=== PATIENT | male | born 1970 | race Caucasian/White ===

== ENCOUNTER 2019-01-21 20:12 | Inpatient (IN) | payer SELFPAY ==
[~2019-01-21] VITALS: Ht 188 cm; Wt 74.0 kg
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
[2019-01-21] MEDS ORDERED: LIDOCAINE /MPF 1% VIAL 5 ML VIAL ONE (20:29)
--- NOTE | 2019-01-21 20:53 | NUR ---
GERI PA AT BEDSIDE FOR SUTURING.
[2019-01-21] MEDS ORDERED: IV NS 0.9% 1,000 ML BAG IV ONE (21:00)
[2019-01-21] MEDS ORDERED: TDAP [DIPH/PERTUSSIS/TET] 0.5 ML VIAL IM ONE ×2 (21:00→21:13)
[2019-01-21] MEDS ORDERED: LIDOCAINE HCL/PF 1% 30 ML VIAL TP ONE (21:00)
--- NOTE | 2019-01-21 21:00 | NUR ---
PT UNABLE TO URINATE, ER AWARE.
[2019-01-21 21:19] LABS: BASOPHILS # (AUTO) 0.1 /CMM (0.0-0.2); BASOPHILS % (AUTO) 1.4 % (0.0-2.0); EOSINOPHILS % (AUTO) 0.7 % (0.0-6.0); HEMATOCRIT 44 % (39-51); LYMPHOCYTES # (AUTO) 1.7 /CMM (0.8-4.8); LYMPHOCYTES % (AUTO) 40.6 % (20.0-44.0); MEAN CORPUSCULAR HGB CONC 34 g/dl (31.0-36.0); MEAN CORPUSCULAR VOLUME 100 fL (80-96); MONOCYTES # (AUTO) 0.4 /CMM (0.1-1.30); MONOCYTES % (AUTO) 10.2 % (2.0-12.0); NEUTROPHILS # (AUTO) 1.9 /CMM (1.8-8.9); NEUTROPHILS % (AUTO) 47.1 % (43.0-81.0); PLATELET COUNT (AUTO) 77 /CMM (150-450); RED BLOOD CELL COUNT(AUTO) 4.39 MIL/uL (4.5-6.0); WHITE BLOOD COUNT (AUTO) 4.1 K/uL (4.3-11.0)
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
--- NOTE | 2019-01-21 21:20 | NUR ---
PT TAKEN TO CT.
[2019-01-21 21:36] LABS: CARBON DIOXIDE 26 mmol/L (21-32); CHLORIDE 102 mmol/L (98-107); CREATININE 0.8 mg/dL (0.6-1.3); GLUCOSE 114 mg/dL (74-106); SODIUM SERUM 141 mmol/L (136-145); UREA NITROGEN, BLOOD 5 mg/dL (7-18)
[2019-01-21 21:45] LABS: ALANINE AMINOTRANSFERASE 83 U/L (12-78); ALBUMIN 4.4 g/dL (3.4-5.0); ALCOHOL, BLOOD 384 mg/dL (0-0); ALKALINE PHOSPHATASE 83 U/L (46-116); ASPARTATE AMINOTRANSFERASE 112 U/L (15-37); BAND % (MANUAL) 6 % (0.0-5.0); BILIRUBIN,DIRECT 0.1 mg/dL (0.0-0.2); BILIRUBIN,TOTAL 0.4 mg/dL (0.2-1.0); EOSINOPHILS % (MANUAL) 2 % (0-4); LYMPHOCYTES % (MANUAL) 46 % (16-48); MONOCYTES % (MANUAL) 8 % (0-11.0); NEUTROPHILS % (MANUAL) 37 (42-76); REACTIVE LYMPHOCYTES 1 % (0-0); SALICYLATE 2.8 mg/dL (2.8-20.0); TOTAL PROTEIN, SERUM 7.6 g/dL (6.4-8.2)
[2019-01-21 21:49] LABS: ACETAMINOPHEN < 10 ug/ml (10-30)
--- NOTE | 2019-01-21 21:57 | NUR ---
EPIC PAGED, PRODUCTION MACHINE TENDER
--- NOTE | 2019-01-21 22:07 | NUR ---
CALLED NURSING SUP. FOR TELE BED
--- NOTE | 2019-01-21 22:15 | NUR ---
[facility] REPAGED
[2019-01-21 22:47] LABS: THYROID STIMULATING HORMONE 2.279 uIU/mL (0.358-3.74)
--- NOTE | 2019-01-21 22:55 | NUR ---
PT UNABLE TO URINATE, ER MD AWARE. PT REFUSES IN AND OUT CATHETER.
--- NOTE | 2019-01-21 23:14 | NUR ---
REPORT GIVEN TO GER GRIFFITHS FOR MATTEO.
--- NOTE | 2019-01-21 23:45 | NUR ---
TELE PATIENT FINANCIAL REPRESENTATIVE INITIAL NOTES' ADMIT PT FROM ER VIA [place] ACCOMPANIED BY PARENT AIDE. DX OF ETOH INTOXICATION. PT IS ALERT ORIENTED X4. AWARE WHERE HE AT. RESPIRATION EVEN AND UNLABORED NOT IN [place] ACUTE DISTRESS NOTED. PT STATED HE STARTED DRINKING ALCOHOL AFTER HIS FOR 30 YRS PASSES AWAY . NOTICED PT SHAKING TRYING TO CALMED HIM DOWN BY TAKING TO HIM WITH ENCOURAGEMENT. KEPT HIM WARM AND COMFORTABLE AT ALL TIMES. ORIENTED HOW TO USED THE CALL LIGHT SYSTEM AND ENCOURAGE HIM TO USED IF HE NEEDS SOME HELPED. TELE APPLIED AND EXPLAINED TO THE PATIENT THE PURPOSE OF IT AND PT UNDERSTOOD WELL. TELE SINUS RHYTHM HEART RATE 85 PER MONITOR. CONTINUE MONITORING FOR SAFETY.
[2019-01-22] VITALS: BP 124/87
[2019-01-22] MEDS ORDERED: MAGNESIUM HYDROXIDE 30 ML UDC PO PRN (00:30)
[2019-01-22] MEDS ORDERED: ACETAMINOPHEN 325 MG TABLET PO PRN (00:30)
[2019-01-22] MEDS ORDERED: MAG HYDROX/AL HYDROX/SIMETH 30 ML UDC PO PRN (00:30)
[2019-01-22] MEDS ORDERED: ZOLPIDEM TARTRATE 5 MG TABLET PO PRN (00:30)
[2019-01-22] MEDS ORDERED: Z GUARD REMEDY 2 OZ OINT TP PRN (00:30)
[2019-01-22] MEDS ORDERED: hydrALAZINE HCL 25 MG TABLET PO PRN (00:30)
[2019-01-22] MEDS ORDERED: HYDROCODONE/APAP 5/325MG 1 EACH TABLET PO PRN (00:30)
[2019-01-22] MEDS: IV D5/0.45 NACL 1,000 ML IV PRN ×2 (00:48→15:58)
[2019-01-22] MEDS: LORAZEPAM INJ 2 MG/ML VIAL IV PRN ×3 (00:54→17:13)
--- NOTE | 2019-01-22 00:55 | NUR ---
TELE FINANCIAL AID COUNSELOR NOTES NOTICED PT GETTING ANXIOUS AND SHAKING WHILE TALKING TO HIM , ATIVAN 1 MG ADMINISTERED BY ANOTHER NURSE TO HELPED THE PT CALMED DOWN. SAFETY PRECAUTION IMPLEMENTED AND OBSERVED. IVF D5 1/2 NS STARTED TOO INFUSED ORDERED. WILL CONTINUE MONITORING. SITTER AT THE BEDSIDE.
--- NOTE | 2019-01-22 02:00 | NUR ---
TELE METER INSPECTOR NOTES PT SLEEPING AT THIS TIME WITHOUT ANY DISTRESS NOTED. IVF STILL INFUSING. TELE SR PER MONITOR.
[2019-01-22] MEDS ORDERED: METO25TA6 PO (05:55)
[2019-01-22] MEDS ORDERED: ESCI10TA PO (05:55)
--- NOTE | 2019-01-22 07:08 | NUR ---
ASSISTANT WOMENS VOLLEYBALL COACH NOTES PATIENT IN BED ALERT ORIENTED X 4. NO ACUTE DISTRESS NOTED. BREATHING UNLABORED. NO SOB NOTED. IV ACCESS PATENT AND INTACT, NO REDNESS OR SWELLING NOTED. SAFETY MEAURES IN PLACE. HOB ELEVATED. CALL LIGHT WITHIN REACH. WILL CONTINUE TO MONITOR ACCORDINGLY.
--- NOTE | 2019-01-22 07:39 | NUR ---
MS SNOW SHOVELER CLOSING NOTES PT AWAKE AND ALERT WITH IVF INFUSING AT THIS TIME. NORCO TABLET GIVEN PER HIS BACK PAIN AND ELBOW PAIN. CALMED AND SLEPT AFTER ATIVAN GIVEN LAST NIGHT. IVF STILL INFUSING ON HIS LEFT FOREARM. KEPT HIM WARM AND COMFORTABLE AT ALL TIMES. SITTER AT THE BEDSIDE FOR SAFETY. ENDORSE TO AM NURSE.
[2019-01-22 08:00] VITALS: BP 145/95
[2019-01-22] MEDS: ONDANSETRON HCL/PF 4 MG/2 ML VIAL IVP PRN ×3 (08:06→21:47)
[2019-01-22 08:26] LABS: ALBUMIN 3.9 g/dL (3.4-5.0); BILIRUBIN,TOTAL 0.6 mg/dL (0.2-1.0); CALCIUM, SERUM 8.3 mg/dL (8.5-10.1); CREATININE 0.7 mg/dL (0.6-1.3); MAGNESIUM 1.7 mg/dL (1.8-2.4); POTASSIUM 3.6 mmol/L (3.5-5.1); TOTAL PROTEIN, SERUM 6.7 g/dL (6.4-8.2)
[2019-01-22] MEDS: ESCITALOPRAM OXALATE (10 MG) 10 MG TABLET PO SCH (08:57)
[2019-01-22] MEDS: Magnesium 1GM/D5W 100ML PREMIX 100 ML IV SCH ×2 (11:26→12:47)
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
[2019-01-22 15:26] LABS: APPEARANCE,URINE SL CLOUDY (CLEAR); BILIRUBIN,URINE NEGATIVE (NEGATIVE); BLOOD, URINE NEGATIVE Ery/uL (NEGATIVE); COLOR,URINE YELLOW (YELLOW); KETONES,URINE TRACE (NEGATIVE); LEUKOCYTE ESTERASE ,URINE NEGATIVE (NEGATIVE); NITRITE, URINE NEGATIVE (NEGATIVE); PH,URINE 7.5 (5.0-8.0); PROTEIN,URINE 1+ mg/dl (NEGATIVE); UGLUCOSE NEGATIVE (NEGATIVE); UROBILINOGEN,URINE 0.2 EU/dL (0.2)
[2019-01-22 15:46] LABS: BACTERIA,URINE None seen /HPF (None Seen); RBC,URINE 0-2 /HPF (0-2); SQUAMOUS EPITHELIAL CELL,UR Rare /HPF (None Seen); WBC,URINE 0-2 /HPF (0-3)
--- NOTE | 2019-01-22 18:33 | NUR ---
MS RN NOTES PATIENT IN BED ALERT ORIENTED X 4, APPEARS CALM. NO ACUTE DISTRESS NOTED. BREATHING UNLABORED. NO SOB NOTED. DENIED ANY PAIN AT THIS TIME.IV ACCESS PATENT AND INTACT, NO REDNESS OR SWELLING NOTED. DUE MEDICATIONS GIVEN, NO ASE NOTED. SAFETY MEASURES IN PLACE. HOB ELEVATED. CALL LIGHT WITHIN REACH. WILL CONTINUE TO MONITOR AND ENDORSE TO NIGHT NURSE FOR CONTINUITY OF CARE.
--- NOTE | 2019-01-22 19:35 | NUR ---
MS RN NOTE RECEIVED PT IN STABLE CONDITION, A&O X4, ABLE TO MAKE NEEDS KNOWN. SITTER AT BEDSIDE. NO SIGNS OF SOB OR DISTRESS, NO C/O PAIN. IV PATENT AND INTACT INFUSING IVF, TOLERATING WELL. ALL CURRENT NEEDS MET. SAFETY MEASURES IN PLACE: BED LOW, LOCKED, UPPER RAILS UP, AND CALL LIGHT WITHIN REACH. WILL CONT TO MONITOR.
[2019-01-22 19:40] VITALS: BP 135/91
--- NOTE | 2019-01-23 06:45 | NUR ---
MS RN NOTE PT IN STABLE CONDITION, A&O X4, ABLE TO MAKE NEEDS KNOWN. SITTER AT BEDSIDE. NO SIGNS OF SOB OR DISTRESS, NO C/O PAIN. IV PATENT AND INTACT INFUSING IVF, TOLERATING WELL. ALL CURRENT NEEDS MET. SAFETY MEASURES IN PLACE: BED LOW, LOCKED, UPPER RAILS UP, AND CALL LIGHT WITHIN REACH. WILL CONT TO MONITOR AND ENDORSE TO NEXT SHIFT FOR MATTEO.
--- NOTE | 2019-01-23 07:10 | NUR ---
PATTERN ROOM ATTENDANT NOTES PATIENT IN BED ALERT ORIENTED X 4. NO ACUTE DISTRESS NOTED. BREATHING UNLABORED. NO SOB NOTED. IV ACCESS PATENT AND INTACT, NO REDNESS OR SWELLING NOTED. SAFETY MEAURES IN PLACE. HOB ELEVATED. CALL LIGHT WITHIN REACH. WILL CONTINUE TO MONITOR ACCORDINGLY.
[2019-01-23 07:38] LABS: BASOPHILS % (AUTO) 0.9 % (0.0-2.0); EOSINOPHILS % (AUTO) 1.1 % (0.0-6.0); HEMATOCRIT 36 % (39-51); HEMOGLOBIN 12.8 g/dL (13.5-17.5); LYMPHOCYTES # (AUTO) 0.9 /CMM (0.8-4.8); LYMPHOCYTES % (AUTO) 23.1 % (20.0-44.0); MEAN CORPUSCULAR HGB CONC 35 g/dl (31.0-36.0); MEAN CORPUSCULAR VOLUME 98 fL (80-96); MONOCYTES # (AUTO) 0.5 /CMM (0.1-1.30); MONOCYTES % (AUTO) 11.4 % (2.0-12.0); NEUTROPHILS # (AUTO) 2.5 /CMM (1.8-8.9); NEUTROPHILS % (AUTO) 63.5 % (43.0-81.0); RED BLOOD CELL COUNT(AUTO) 3.69 MIL/uL (4.5-6.0)
[2019-01-23] MEDS: LORAZEPAM INJ 2 MG/ML VIAL IV PRN (07:47)
[2019-01-23 07:49] LABS: ALBUMIN 3.8 g/dL (3.4-5.0); BILIRUBIN,DIRECT 0.3 mg/dL (0.0-0.2); BILIRUBIN,TOTAL 1.2 mg/dL (0.2-1.0); CALCIUM, SERUM 8.9 mg/dL (8.5-10.1); CREATININE 0.8 mg/dL (0.6-1.3); PHOSPHORUS 3.6 mg/dL (2.5-4.9); POTASSIUM 3.6 mmol/L (3.5-5.1); TOTAL PROTEIN, SERUM 6.7 g/dL (6.4-8.2)
--- NOTE | 2019-01-23 08:00 | NUR ---
MS RN NOTES LABORATORY TEST RESULTED FROM TODAY, NOTIFIED [employer] DRIVER BEAN ZURITA INCLUDING LOW PLATELET = 46, NO NEW ORDERS MADE AT THIS TIME.
[2019-01-23 08:02] LABS: PLATELET COUNT (AUTO) 46 /CMM (150-450)
[2019-01-23] MEDS: ESCITALOPRAM OXALATE (10 MG) 10 MG TABLET PO SCH (08:19)
[2019-01-23] MEDS: ONDANSETRON HCL/PF 4 MG/2 ML VIAL IVP PRN (08:20)
[2019-01-23 08:48] LABS: LYMPHOCYTES % (MANUAL) 16 % (16-48); MONOCYTES % (MANUAL) 9 % (0-11.0); NEUTROPHILS % (MANUAL) 75 (42-76)
[2019-01-23] MEDS ORDERED: FOLIC ACID 1 MG TABLET PO SCH (09:00)
[2019-01-23] MEDS ORDERED: THIAMINE HCL 100 MG TABLET PO SCH (09:00)
[2019-01-23] MEDS: IV D5/0.45 NACL 1,000 ML IV PRN (11:00)
--- NOTE | 2019-01-23 12:11 | NUR ---
WOUND CARE CONSULT: PT PRESENTS INDEPENDENT WITH BED MOBILITY AND CONTINENT WITH SUTURED LACERATION TO BACK (4 SUTURES), PRESENT ON ADMISSION. RECOMMEND MD FOLLOWUP FOR SUTURES. NO DRAINAGE OR TENDERNESS NOTED. WILL SEE PRN. CURRENT RIDGE SCORE IS 22.
--- NOTE | 2019-01-23 12:21 | NUR ---
MS RN NOTES SEEN AND EVALUATED BY KEMAL ZURITA WITH NEW ORDERS MADE, NOTED AND CARRIED OUT. KEMAL ZURITA AWARE OF ABDOMINAL ULTRASOUND RESULT.
--- NOTE | 2019-01-23 18:35 | NUR ---
MS METAL FURNITURE GLAZIER NOTES PATIENT DISCHARGED HOME WITH STABLE VITAL SIGNS, ALERT ORIENTED X 4. NO ACUTE DISTRESS NOTED. BREATHING UNLABORED. NO SOB NOTED. DISCHARGE INSTRUCTIONS GIVEN TO THE PATIENT, INCLUDING FOLLOW UP WITH PRIMARY DOCTOR AND WOUND CLINIC FOR SUTURE MANAGEMENT, VERBALIZED UNDERSTANDING.LEFT UPPER DRESSING INTACT, CLEAN AND DRY, NO DRAINAGE, NO SIGN AND SYMPTOMS OF INFECTION NOTED. ALL BELONGINGS ACCOUNTED FOR. IV ACCESS REMOVED, NO BLEEDING OR REDNESS NOTED. ASSISTED PATIENT TO THE LOBBY, AMBULATES WITH STEADY GAIT. PICKED UP VIA TAXI, TAXI VOUCHER PROVIDED. PATIENT IN STABLE CONDITION.
== END 2019-01-23 18:30 | disposition home or self-care (01) | DRG 897 ==
LOC: ER 20:16 → TELE 23:42 → MED 01-22 16:28
PROVIDERS: ADMIT Nurse Practitioner Acute Care; ATTEND Nurse Practitioner Acute Care
PROC: 0HQ6XZZ Repair Back Skin, External Approach (ICD-10-PCS; principal; 2019-01-21)
DX: F10.239 Alcohol dependence with withdrawal, unspecified (principal); S31.010A Laceration without foreign body of lower back and pelvis without penetration into retroperitoneum, initial encounter; R74.0 Nonspecific elevation of levels of transaminase and lactic acid dehydrogenase [LDH]; D72.819 Decreased white blood cell count, unspecified; I10 Essential (primary) hypertension; D69.59 Other secondary thrombocytopenia; F17.200 Nicotine dependence, unspecified, uncomplicated; E83.42 Hypomagnesemia; W18.30XA Fall on same level, unspecified, initial encounter; Y92.410 Unspecified street and highway as the place of occurrence of the external cause
CPT/HCPCS: 36415; 70450-TC; 71045-TC; 72125-TC; 76700-TC; 80048-TC; 80053-TC; 80076-TC; 80305; 81000-TC; 83735-TC; 84100-TC; 84443-TC; 84484-TC; 85025-TC; 85730-TC; 87081-TC; 90715; A6402; G0378; G0480; J2060; J2405; J3475; J3490; J7030

== ENCOUNTER 2019-01-30 15:40 | Emergency (ER) | payer SELFPAY ==
[~2019-01-30] VITALS: Ht 185.4 cm; Wt 77.1 kg
[2019-01-30 15:40] VITALS: BP 122/84
[~2019-01-30 15:40] MED LIST: ESCI10TA PO; METO25TA6 PO
== END 2019-01-30 16:31 | disposition home or self-care (01) ==
LOC: ER 15:43
DX: S21.212D Laceration without foreign body of left back wall of thorax without penetration into thoracic cavity, subsequent encounter (principal); I10 Essential (primary) hypertension; Z79.899 Other long term (current) drug therapy; X58.XXXD Exposure to other specified factors, subsequent encounter
CPT/HCPCS: Z7502

== ENCOUNTER 2019-02-13 16:00 | Emergency (ER) | payer MEDICAID ==
[~2019-02-13] VITALS: Ht 185.4 cm; Wt 78.5 kg
[2019-02-13 16:02] VITALS: BP 136/94
[2019-02-13] MEDS ORDERED: HYDROCODONE/APAP 5/325MG 1 EACH TABLET PO ONE (16:30)
[2019-02-13] MEDS ORDERED: HYDROCODONE/APAP 5/325MG 1 EACH TABLET ONE (16:47)
[2019-02-13] MEDS ORDERED: LIDOCAINE 1%-EPI 1:100,000 20 ML VIAL TP ONE (17:00)
== END 2019-02-13 18:33 | disposition home or self-care (01) ==
LOC: ER 16:05
DX: S06.0X0A Concussion without loss of consciousness, initial encounter (principal); S42.032A Displaced fracture of lateral end of left clavicle, initial encounter for closed fracture; S01.81XA Laceration without foreign body of other part of head, initial encounter; S50.312A Abrasion of left elbow, initial encounter; S40.212A Abrasion of left shoulder, initial encounter; I10 Essential (primary) hypertension; F10.10 Alcohol abuse, uncomplicated; Y90.9 Presence of alcohol in blood, level not specified; W18.09XA Striking against other object with subsequent fall, initial encounter; Y93.I9 Activity, other involving external motion; Y92.410 Unspecified street and highway as the place of occurrence of the external cause; Y99.8 Other external cause status
CPT/HCPCS: 12013; 70450; 70486; 73000; 73030; 73080; 99284; A6402; A6403

== ENCOUNTER 2019-02-21 15:27 | Emergency (ER) | payer MEDICAID ==
[~2019-02-21] VITALS: Ht 185.4 cm; Wt 81.2 kg
[2019-02-21 15:39] VITALS: BP 126/72
--- NOTE | 2019-02-21 16:16 | NUR ---
Patient discharged to home in stable condition. Written and verbal after care instructions given. Patient verbalizes understanding of instruction.
== END 2019-02-21 16:17 | disposition home or self-care (01) ==
LOC: ER 15:30
DX: S01.81XD Laceration without foreign body of other part of head, subsequent encounter (principal); I10 Essential (primary) hypertension; F10.10 Alcohol abuse, uncomplicated; Y90.9 Presence of alcohol in blood, level not specified; X58.XXXD Exposure to other specified factors, subsequent encounter
CPT/HCPCS: Z7502

== ENCOUNTER 2019-11-09 16:51 | Emergency (ER) | payer MEDICAID, OTHER ==
[~2019-11-09] VITALS: Ht 180.3 cm; Wt 83.9 kg
[2019-11-09 17:22] VITALS: BP 124/84
[2019-11-09] MEDS ORDERED: ALBUTEROL FS 2.5 MG/3 ML VIAL.NEB NEB ONE (17:30)
[2019-11-09] MEDS ORDERED: IPRATROPIUM NEB FS 0.5 MG/2.5 ML AMPUL.NEB NEB ONE (17:30)
[2019-11-09] MEDS ORDERED: predniSONE 20 MG TABLET PO ONE (17:30)
[2019-11-09] MEDS ORDERED: predniSONE 20 MG TABLET ONE (17:41)
[2019-11-09] MEDS ORDERED: ALBUTEROL FS 2.5 MG/3 ML VIAL.NEB ONE (17:51)
[2019-11-09] MEDS ORDERED: IPRATROPIUM NEB FS 0.5 MG/2.5 ML AMPUL.NEB ONE (17:51)
== END 2019-11-09 19:07 | disposition home or self-care (01) ==
LOC: ER 17:00
DX: J20.9 Acute bronchitis, unspecified (principal); I10 Essential (primary) hypertension; F17.200 Nicotine dependence, unspecified, uncomplicated; Z79.899 Other long term (current) drug therapy
CPT/HCPCS: 71045; 94640; 99283; J7512